=== PATIENT | male | born 1995 | race Caucasian/White ===

== ENCOUNTER → 2020-12-14 | Outpatient (CLI) | payer BC ==
[~2020-12-14] MED LIST: IBU400 MG PO; Voltaren Gel 1 % TOP
== END ==
LOC: KOH-I 14:52
DX: M54.5 Low back pain (principal)
CPT/HCPCS: 72110

== ENCOUNTER 2021-07-02 08:54 | Emergency (ER) | payer BC ==
[2021-07-02 09:59] LABS: HEMOGLOBIN 14.3 gm/dl (14.0-17.5); RED BLOOD COUNT 4.87 M/UL (4.20-5.50); WHITE BLOOD COUNT 8.1 K/UL (4.5-11.0)
[2021-07-02 10:20] LABS: BUN/CREATININE RATIO 9 (0-10)
[2021-07-02] MEDS ORDERED: FLAGYL 250 MG250 MG PO (12:19)
[2021-07-02] MEDS ORDERED: PENVEE K 500 M500 MG PO (12:19)
== END 2021-07-02 12:46 | disposition home or self-care (01) ==
LOC: ER1 08:54
PROVIDERS: Physician Assistant
DX: K04.7 Periapical abscess without sinus (principal)
CPT/HCPCS: 70487; 80053; 85025; 96374; 96375; 99284; J1885; Q9967